=== PATIENT | male | born 1985 | race Caucasian/White ===

== ENCOUNTER 2023-05-01 12:50 | Emergency (ER) | payer OTHER, SELFPAY ==
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
[2023-05-01 13:01] VITALS: BP 167/101; PULSE 75; RESP 16; TEMP 36.9; O2SAT 95; BMI 34.4
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
[2023-05-01] MEDS: Ketorolac Tromethamine 60 MG/2 ML VIAL IM (14:07)
[2023-05-01 15:37] VITALS: BP 167/96; PULSE 65; RESP 18; O2SAT 100
== END 2023-05-01 16:20 | disposition home or self-care (01) ==
PROVIDERS: Emergency Provider Emergency Medicine
DX: S13.4XXA Sprain of ligaments of cervical spine, initial encounter (principal); S39.012A Strain of muscle, fascia and tendon of lower back, initial encounter; M54.2 Cervicalgia; V43.52XA Car driver injured in collision with other type car in traffic accident, initial encounter; Y93.9 Activity, unspecified; Y92.410 Unspecified street and highway as the place of occurrence of the external cause; Y99.9 Unspecified external cause status
CPT/HCPCS: 72040; 72100; 96372; 99283; 99284; J1885